=== PATIENT | female | born 1980 | race Caucasian/White ===

== ENCOUNTER 2018-08-12 19:28 | Emergency (ER) | payer BC, OTHER ==
[2018-08-12 22:23] LABS: URINE BLOOD (Dip) POC Trace-lysed (NEGATIVE); URINE GLUCOSE (Dip) POC Negative (NEGATIVE); URINE KETONES (Dip) POC Negative (NEGATIVE); URINE LEUKOCYTE EST (Dip) POC Negative (NEGATIVE); URINE NITRITE (Dip) POC Negative (NEGATIVE); URINE TOTAL PROTEIN POC Negative (NEGATIVE)
[2018-08-12 22:23] LABS: URINE PH (Dip) POC 6.5 (5.0-8.5)
== END 2018-08-12 22:55 | disposition home or self-care (01) ==
LOC: FTE 19:28
DX: R22.0 Localized swelling, mass and lump, head (principal)
CPT/HCPCS: 81003; 99282